=== PATIENT | female | born 1980 | race Caucasian/White ===

== ENCOUNTER 2019-01-06 06:34 | Day surgery (SDC) | payer BC ==
[~2019-01-06] VITALS: Ht 160 cm; Wt 109.3 kg
[2019-01-06 07:14] VITALS: Ht 160 cm; Wt 109.3 kg
[2019-01-06 07:35] VITALS: BP 141/90; PULSE 62; RESP 17
[2019-01-06] MEDS ORDERED: PROPOFOL 40 ML ONE (08:09)
[2019-01-06] MEDS ORDERED: LIDOCAINE 2% (SDV) 5 ML INJ ONE (08:46)
[2019-01-06 09:01] VITALS: BP 151/75; PULSE 63; RESP 16
== END 2019-01-06 14:06 | disposition home or self-care (01) ==
LOC: GIL 06:34
PROVIDERS: ATTEND Internal Medicine Gastroenterology
DX: Z12.11 Encounter for screening for malignant neoplasm of colon (principal); K64.8 Other hemorrhoids